=== PATIENT | male | born 1935 | race Caucasian/White ===

== ENCOUNTER 2018-01-03 08:45 | Inpatient (IN) ==
--- NOTE | 2018-01-02 22:41 | Discharge Summary ---
<Yvonne Eric E - Last Filed: 01/02/18 22:39> Date of Encounter: 01/02/18 - Discharge Diagnosis (1) Arthritis of left knee Priority: Primary Status: Chronic (2) Status post total left knee replacement Priority: Primary Status: Acute (3) Hypertension Priority: Secondary Status: Chronic Qualifiers: Hypertension type: unspecified Qualified Code(s): I10 - Essential (primary ) hypertension (4) Pacemaker Priority: Secondary Status: Chronic - Hospital Course Hospital course: Mr. Menjivar is a 82 year old male - Time Spent with Patient Total time spent providing and/or coordinating discharge services: - Discharge Medications Prescriptions: Aspirin Enteric Coated [Aspirin EC] 325 mg PO BID 10 Days #20 tablet. OxyCODONE Immed Rel [Roxicodone 5 MG] 5 mg PO Q6HR PRN 7 Days #28 tablet PRN Reason: Severe Pain Home Medications: Aspirin Enteric Coated [Aspirin EC] 325 mg PO BID 10 Days #20 tablet. [Rx] OxyCODONE Immed Rel [Roxicodone 5 MG] 5 mg PO Q6HR PRN 7 Days #28 tablet [Rx] Aspirin 162.5 mg PO DAILY 01/03/18 [History] Cyanocobalamin (Vitamin B-12) [Vitamin B-12] 1,000 mcg PO DAILY 01/03/18 [ History] Garlic 1,000 mg PO DAILY 01/03/18 [History] Glucosamine Sulfate Dipot Chlr [Glucosamine] 1,000 mg PO DAILY 01/03/18 [History ] Lisinopril [Zestril] 10 mg PO DAILY 01/03/18 [History] Magnesium 200 mg PO DAILY 01/03/18 [History] Multivitamin [One Daily Multivitamin] 1 tab PO DAILY 01/03/18 [History] Niacin 500 mg PO DAILY 01/03/18 [History] Silver-3/Dha/Epa/Fish Oil [Fish Oil 1,000 mg Softgel] 1 cap PO DAILY 01/03/18 [ History] Potassium 99 mg PO DAILY 01/03/18 [History] Saw [place] 500 mg PO DAILY 01/03/18 [History] Selenomethionine [Selenium] 200 mcg PO DAILY 01/03/18 [History] Ubidecarenone [Co Q-10] 10 mg PO DAILY 01/03/18 [History] Allergies/Adverse Reactions: 3 Allergy/AdvReac Type Severity Reaction Status Date / Time No Known Allergies Allergy Verified 01/03/18 09:57 Primary care physician: Kayleigh Duong - Discharge Instructions Follow Up With: Kayleigh Duong MD [Primary Care Provider] - <Justin Julien - Last Filed: 01/03/18 10:38> Orders not resulted at time of discharge: Pending orders 01/03/18 01:00 XR knee LT limited 1-2V [XR] Routine Hemoglobin and Hematocrit [HEME] Routine Date of Encounter: 01/03/18 - Discharge Diagnosis (1) Arthritis of left knee Priority: Primary Status: Chronic (2) Status post total left knee replacement Priority: Primary Status: Acute (3) Hypertension Priority: Secondary Status: Chronic Qualifiers: Hypertension type: unspecified Qualified Code(s): I10 - Essential (primary ) hypertension (4) Pacemaker Priority: Secondary Status: Chronic - Hospital Course Hospital course: Mr. Menjivar is a 82 year old male - Time Spent with Patient Total time spent providing and/or coordinating discharge services: Primary care physician: Kayleigh Duong
--- NOTE | 2018-01-03 08:52 | History & Physical Report ---
Date of Encounter: 01/03/18 Time of Encounter: 08:52 24 Hour HP Update - Instructions Instructions: If the History and Physical is less than 30 days old and was completed prior to A.M. admission and or procedure and has NOT been updated on calendar day of procedure please complete this update prior to performing procedure. - Update Patient reports changes in Medical Condition: No Changes in examination, assessment, or condition: No Changes in Medication: No Preop tests/diagnostics Reviewed: Yes Surgery Remains Indicated: Yes Consent for Planned Operative Procedure(s) Verified: Yes - Pre-Operative Checklist Preoperative Checklist Indicated: No Prophylactic Antibiotic Ordered: Yes Is VTE Prophylaxis Indicated?: Yes
[2018-01-03] MEDS ORDERED: Ringers Solution, Lactated 1,000 ML IVC SCH ×2 (09:15→13:58)
[2018-01-03] MEDS ORDERED: *HR* Midazolam HCl 2 MG/2 ML VIAL ONE (09:21)
[2018-01-03] MEDS ORDERED: *HR* FentaNYL (PF) 100 MCG/2 ML VIAL ONE (09:21)
[2018-01-03] MEDS ORDERED: *HR* Propofol 200 MG/20 ML VIAL IVP ONE ×2 (09:21→10:28)
[2018-01-03] MEDS ORDERED: Dexamethasone 4 MG/ML VIAL ONE (09:22)
[2018-01-03] MEDS ORDERED: Lidocaine -MPF 2% 2 ML VIAL ONE (09:22)
[2018-01-03] MEDS ORDERED: Ondansetron 4 MG/2 ML VIAL ONE (09:22)
[2018-01-03] MEDS ORDERED: Pregabalin 75 MG CAPSULE PO ONE (09:34)
[2018-01-03] MEDS ORDERED: Acetaminophen IV 1,000 MG/100 ML INFUS..BTL IVPB ONE (09:34)
[2018-01-03] MEDS ORDERED: Famotidine 20 MG/2 ML VIAL IVP ONE (09:34)
[2018-01-03] MEDS ORDERED: *HR* OxyCODONE Immed Rel 5 MG TABLET PO PRN ×2 (09:45→13:58)
[2018-01-03] MEDS ORDERED: *HR* FentaNYL (PF) 100 MCG/2 ML VIAL IVP PRN (09:45)
[2018-01-03] MEDS ORDERED: *HR* Promethazine 25 MG/ML VIAL IVP PRN (09:45)
--- NOTE | 2018-01-03 10:08 | Anesthesia Evaluation PreOp ---
Date of Encounter: 01/03/18 Time of Encounter: 10:00 - Past History Planned Operation: Left TKA Cardiac History: HTN, Hyperlipidemia, Arrhythmia, Pacemaker/ICD Pulmonary History: Denies Any Significant HX SAP TECHNICAL ARCHITECT History: Denies Any Significant HX Other Medical History: Denies Any Significant HX Anesthesia History: No Prior Anesthetic Complications Alcohol Use: occasionally Drug use: none Medications and Allergies Aspirin Enteric Coated [Aspirin EC] 325 mg PO BID 10 Days #20 tablet. [Rx] OxyCODONE Immed Rel [Roxicodone 5 MG] 5 mg PO Q6HR PRN 7 Days #28 tablet [Rx] Aspirin 162.5 mg PO DAILY 01/03/18 [History] Cyanocobalamin (Vitamin B-12) [Vitamin B-12] 1,000 mcg PO DAILY 01/03/18 [ History] Garlic 1,000 mg PO DAILY 01/03/18 [History] Glucosamine Sulfate Dipot Chlr [Glucosamine] 1,000 mg PO DAILY 01/03/18 [History ] Lisinopril [Zestril] 10 mg PO DAILY 01/03/18 [History] Magnesium 200 mg PO DAILY 01/03/18 [History] Multivitamin [One Daily Multivitamin] 1 tab PO DAILY 01/03/18 [History] Niacin 500 mg PO DAILY 01/03/18 [History] [place]-3/Dha/Epa/Fish Oil [Fish Oil 1,000 mg Softgel] 1 cap PO DAILY 01/03/18 [ History] Potassium 99 mg PO DAILY 01/03/18 [History] Saw [place] 500 mg PO DAILY 01/03/18 [History] Selenomethionine [Selenium] 200 mcg PO DAILY 01/03/18 [History] Ubidecarenone [Co Q-10] 10 mg PO DAILY 01/03/18 [History] 3 Allergy/AdvReac Type Severity Reaction Status Date / Time No Known Allergies Allergy Verified 01/03/18 09:57 - Meds/Allergy Pre-op Review Medications Reviewed: Yes Allergies Reviewed: Yes Beta Blockers on Current Med List: No Anesthesia Results - Labs Laboratory Tests 12/22/17 12/22/17 12/22/17 10:00 10:00 10:00 Hgb 14.7 Hct 40.7 Plt Count 255 PT 11.4 INR 1.1 APTT 29.7 Sodium 139 Potassium 4.3 BUN 9 Creatinine 1.16 - Imaging EKG: report reviewed (Pacemaker) Anesthesia Exam O2 Sat Height 1.78 m Height 1.78 m Height 1.78 m Weight 92.079 kg Weight 92.079 kg Weight 92.079 kg O2 Sat by Pulse Oximetry 96 Vital Signs Temp Pulse Resp BP Pulse Ox 98.3 F 60 18 150/73 96 01/03/18 09:11 01/03/18 09:11 01/03/18 09:11 01/03/18 09:11 01/03/18 09:11 Height: 5'10 Weight: 203 lbs NPO (# of Hours): MN Pain Scale: 0 - HEENT Pupil (Motor): Pupils equal, EOMI Mallampati: II Denture Type: Upper: Complete Oral Opening: Greater than 3 - SAP TECHNICAL ARCHITECT LOC: Oriented SAP TECHNICAL ARCHITECT Motor: Normal RUE, Normal LUE, Normal RLE, Normal LLE, Normal Face SAP TECHNICAL ARCHITECT Sensory: Normal: RUE, LUE, RLE, LLE, Face - Cardiac Rhythm: Regular Murmur: None JVD: No Carotid Bruit: No - Pulmonary Breath Sounds: bilateral Clear Respiratory Effort: Symmetrical Anesthesia Assess/Plan ASA Score: 3 ( Arrhythmia HTN Pacemaker) Modified Ty Scale for Level of Consciousness: Cooperative, oriented, and tranquil Anesthetic Plan: Regional, MAC Monitoring Plan: Standard Monitors Recovery Plan: PACU (Discussed SAB, Adductor Canal Block, possible GA, agrees to proceed)
[2018-01-03] MEDS ORDERED: Tetracaine/PF 20 MG/2 ML AMPUL ONE (10:10)
[2018-01-03] MEDS ORDERED: Morphine Sulfate/PF 5mg/10mL Vial ONE (10:10)
[2018-01-03] MEDS ORDERED: ROPIVACAINE HCL/PF 0.5% 30 ML VIAL ONE (10:10)
[2018-01-03] MEDS ORDERED: Ethanol\\Acetic Acid\\Na Ace\\Ben 1,000 ML IRRIG.SOLN IR ONE (10:30)
--- NOTE | 2018-01-03 10:38 | Anesthesia Procedures ---
Date of Encounter: 01/03/18 Time of Encounter: 10:42 Procedures: Anesthesia - Epidural/Spinal Patient ID/Chart reviewed: Yes Patient examined: Yes Supplemental Oxygen: None/Room Air Site Prep: Aseptic Technique, Sterile prep and drape, Povidone-Iodine 1% Patient position: upright Local Anesthetic: Lidocaine 1% Amount of Local Anesthetic used: 3 Spinal Needle Gauge: 25 Spinal Dose: 2.5cc 0.5 bupivicaine with 0.25mg duramorph Vitals + FHT's: see nursing note Vital Signs/O2 Sat, Most Current Temp Pulse Resp BP Pulse Ox 98.3 F 60 12 129/79 98 01/03/18 09:11 01/03/18 10:35 01/03/18 10:35 01/03/18 10:35 01/03/18 10:35 - Nerve Block Procedure Date: 01/03/18 Time: 10:39 Surgical Procedure: total knee Checklist: Correct Patient Identifier, Correct procedure, History checked Correct side: Left Blood Thinner: No Monitor Applied: EKG, BP, Pulse Oximetry Supplemental Oxygen via Nasal Cannula (L/min): 2 Indication: Post Op Analgesia Pre-op Neuro Deficits: No Block Type: Other (adductor canal) Catheter placed: No Sterile Technique: Yes Ultrasound used: Yes Anatomy identified: Yes Visual spread of Local: Yes Blood on Needle Aspiration: No Smooth Injection of Local: Yes Pain with Injection of Local: No Prep: Chlorhexadine Needle: 21 x 100 mm Stimuplex Local: Tetracaine (20 mg), Ropivacaine (30cc 0.5%) Volume (cc): 30cc Number of Attempts: 1 Complications: None/effective block Vitals: Vital Signs/O2 Sat, Most Current Temp Pulse Resp BP Pulse Ox 98.3 F 60 14 136/72 99 01/03/18 09:11 01/03/18 10:40 01/03/18 10:40 01/03/18 10:40 01/03/18 10:40
--- NOTE | 2018-01-03 10:41 | Anesthesia Procedures ---
Date of Encounter: 01/03/18 Time of Encounter: 10:05 Procedures: Anesthesia - Epidural/Spinal Patient ID/Chart reviewed: Yes Patient examined: Yes Supplemental Oxygen: Nasal Cannula (2) Sedation: Versed (mg): 1 Site Prep: Aseptic Technique Patient position: upright Local Anesthetic: Lidocaine 1% Amount of Local Anesthetic used: 2 Interspace Used: L4-L5 Blood: No CSF: Yes Spinal Needle Gauge: 25 Spinal Dose: 10 mg isobaric marcaine, duramorph 250 microgram Vitals + FHT's: Vital Signs/O2 Sat/Glucose, Most Current Temp Pulse Resp BP Pulse Ox 01/03/18 10:40 60 14 136/72 99 01/03/18 10:35 60 12 129/79 98 01/03/18 10:30 60 13 132/86 98 01/03/18 10:25 60 12 142/81 99 01/03/18 10:20 60 14 151/83 98 01/03/18 10:12 60 16 145/85 98 01/03/18 09:11 98.3 F 60 18 150/73 96
--- NOTE | 2018-01-03 11:39 | Orthopedic Operative Note ---
Date of procedure: 01/03/18 Pre-op diagnosis: Left knee arthritis Post-op diagnosis: same Procedure: Procedure: Left robotic-assisted Total knee replacement Estimated blood loss: 200 cc Hardware: Metal and polyethylene replacement. [place] Femur: 6 Tibia: 7 TS insert: 9 Patella: 39 Exam Under anesthesia: 4 degrees flexion contracture, 2 degree valgus as calculated by the robot full flexion and no instability Procedural Notes: Grade 4 arthritic changes all 3 compartments. Operative procedure: The patient was brought to the operating room and placed on the operating room table. After general anesthesia was administered the operative knee was examined. Findings were noted in the exam under anesthesia. The operative extremity was prepped and draped in sterile surgical fashion. The patient received IV antibiotics prior to skin incision. A standard midline incision was made centered over the patella. The incision was made through the skin and subcutaneous tissue. A medial parapatellar tendon approach was performed. Care was taken to preserve tissue along the medial aspect of the patella. And to protect the patella tendon. The deep MCL was released off the medial tibia. The infra patella fat pad was excised. The patella was everted and cut was made at the level of the insertion of the quadriceps and patella tendon. The patella was sized to 39 the guide was seated and the lug holes are drilled. Knee was brought into flexion. Patient noted to have Steinmann pins were placed in the tibia and the femur for the tibial and femoral arrays respectively. Checkpoints were also placed in the tibia and the femur for calculation purposes. The knee including the femur and the tibial registered. Osteophytes, ACL and PCL were excised at this point. Extension and flexion were assessed with a valgus stress components were adjusted on the computer to balance the knee. Femoral cuts were made first with robotic assistance, these included the anterior cut posterior cuts chamfer cuts. Tibial cut was then performed with robotic assistance as well. Bone fragments were removed, as well as the medial and lateral meniscus. The size 6 femoral guide was seated box cut was made lug holes are drilled. The size 7 tibial tray was seated and prepared with the fin cutter. Trial reduction with the 9 TS Shanda revealed extension of 0 degree and 1 degree varus full flexion. No varus valgus instability. Trial reduction revealed excellent patella tracking. All trial components were removed all bony surfaces were irrigated. The Tibia was seated followed by the femur, The Shanda size 9 was seated and secured patella. Patient had similar findings for motion and stability. The knee was closed by the PA. The knee was then irrigated out with 2 L of pulse irrigation. The extensor mechanism was closed with #2 FiberWire suture and #2 PDS suture. The subcutaneous tissue was then irrigated and closed deep with #1 PDS suture superficially with 0 PDS suture and skin was closed with zip tie The patient was then placed in a sterile dressing and a postoperative brace extubated and transferred to recovery room in stable condition. Anesthesia: spinal Surgeon: Justin Julien Was there an surveyor's assistant present: No Estimated blood loss (cc): 200 Condition: stable Disposition: PACU
--- NOTE | 2018-01-03 12:48 | Anesthesia Evaluation Post Op ---
Date of Encounter: 01/03/18 Time of Encounter: 12:47 - Vital Signs Vital Signs: Vital Signs/O2 Sat/Glucose, Most Recent Temp Pulse Resp BP Pulse Ox 99.3 F 60 16 126/76 95 01/03/18 12:11 01/03/18 12:31 01/03/18 12:31 01/03/18 12:31 01/03/18 12:31 - Lungs Lungs: Clear Ascult./Percussion - Airway Airway: Non-obstructed - Cardiovascular Regular Rate - Mental Status Mental Status: Alert & Oriented, Answers Appropriately - Pain Pain Scale: 0 Pain Scale used: Numeric (1 - 10) - Nausea Vomiting Nausea Vomiting: Not Present - Hydration Hydration: Tolerates oral liquids - Discharge PostOp Status: Transfer Patient to floor
[2018-01-03 12:59] LABS: Hematocrit 34.5 % (37.5-50.1); Hemoglobin 12.2 g/dL (12.9-16.9)
[2018-01-03] MEDS ORDERED: Temazepam 15 MG CAPSULE PO PRN (13:58)
[2018-01-03] MEDS ORDERED: *HR* OxyCODONE/APAP 5/325 TABLET PO PRN (13:58)
[2018-01-03] MEDS ORDERED: Naloxone 0.4 MG/ML INJ IVP PRN (13:58)
[2018-01-03] MEDS ORDERED: Ondansetron 4 MG/2 ML VIAL IVP PRN (13:58)
[2018-01-03] MEDS ORDERED: MOM Conc 10 ML UD.LIQ PO PRN (13:58)
[2018-01-03] MEDS ORDERED: Sennosides 8.6 MG TABLET PO PRN (13:58)
--- NOTE | 2018-01-03 16:21 | Physician Discharge Referral ---
ExtendedCare Referral Info Transfer To: [facility] Provider in Charge: Dr. Justin Julien - Diagnosis (1) Arthritis of left knee Priority: Primary Status: Chronic (2) Status post total left knee replacement Priority: Primary Status: Acute (3) Hypertension Priority: Secondary Status: Chronic (4) Pacemaker Priority: Secondary Status: Chronic Expected Duration of Placement: Less than 30 days Prognosis: Good Aware of Diagnosis: Patient Aware of Prognosis: Patient - Transfer Medications Prescriptions: OxyCODONE Immed Rel [Roxicodone 5 MG] 5 mg PO Q6HR PRN 7 Days #28 tablet PRN Reason: Severe Pain Aspirin Enteric Coated [Aspirin EC] 325 mg PO BID 10 Days #20 tablet. Home Medications: Aspirin Enteric Coated [Aspirin EC] 325 mg PO BID 10 Days #20 tablet. [Rx] OxyCODONE Immed Rel [Roxicodone 5 MG] 5 mg PO Q6HR PRN 7 Days #28 tablet [Rx] Aspirin 162.5 mg PO DAILY 01/03/18 [History] Cyanocobalamin (Vitamin B-12) [Vitamin B-12] 1,000 mcg PO DAILY 01/03/18 [ History] Garlic 1,000 mg PO DAILY 01/03/18 [History] Glucosamine Sulfate Dipot Chlr [Glucosamine] 1,000 mg PO DAILY 01/03/18 [History ] Lisinopril [Zestril] 10 mg PO DAILY 01/03/18 [History] Magnesium 200 mg PO DAILY 01/03/18 [History] Multivitamin [One Daily Multivitamin] 1 tab PO DAILY 01/03/18 [History] Niacin 500 mg PO DAILY 01/03/18 [History] [place]-3/Dha/Epa/Fish Oil [Fish Oil 1,000 mg Softgel] 1 cap PO DAILY 01/03/18 [ History] Potassium 99 mg PO DAILY 01/03/18 [History] Saw [place] 500 mg PO DAILY 01/03/18 [History] Selenomethionine [Selenium] 200 mcg PO DAILY 01/03/18 [History] Ubidecarenone [Co Q-10] 10 mg PO DAILY 01/03/18 [History] Allergies/Adverse Reactions: 3 Allergy/AdvReac Type Severity Reaction Status Date / Time No Known Allergies Allergy Verified 01/03/18 09:57 - Respiratory Orders Smoking Cessation: Smoking cessation has been advised. For more information, call the [place] Tobacco Quit Line at 6-142-SXKD-NOW. - Ancillary Orders May use pressure relief devices daily prn, May go on NANCY w/family/respon alliance party w /meds at nurse discretion PRN, May consult with Dentist, Web Systems Developer, Network Coordinator PRN - Mobility Orders Chair, Ambulate - Rehabiliation Orders Rehab Potential: Good Rehab Orders: Evaluation for Physical Therapy, Evaluation for Occupational Therapy Other: Total Knee replacement Precautions x 6 weeks Apply cold therapy wrap 3-6x/day for 20 minutes at a time. Encourage ambulation throughout the day and incentive spirometer 10x/hour. Elevate affected extremity above heart as tolerated. Brace: Wear knee immobilizer at night x 2 weeks. - Treatments Skin tear care topically daily PRN per policy - Diet Orders Regular CERTIFICATION: I certify that the transfer of the above named patient to an Extended Care Facility is necessary for the continuing treatment of the diagnosis listed. The above information is true and accurate reflection of patient's current condition. Confidential - Redisclosure prohibited without a patient's written consent.
--- NOTE | 2018-01-03 17:38 | Orthopedics Progress Note ---
Date of Encounter: 01/03/18 Time of Encounter: 17:37 - Assessment and Plan (1) Arthritis of left knee Current Visit: No Status: Chronic (2) Status post total left knee replacement Current Visit: No Status: Acute (3) Hypertension Current Visit: No Status: Chronic Qualifiers: Hypertension type: unspecified Qualified Code(s): I10 - Essential (primary ) hypertension (4) Pacemaker Current Visit: No Status: Chronic Subjective Interval history: Patient seen by physical therapy postop patient with a pacemaker high-risk individual patient evaluated by physical therapy and felt to be unsafe to go home patient will require transferred to the extended care facility patient will be converted to an inpatient status Objective Vital signs: Vital Signs Temp Pulse Resp BP Pulse Ox 01/03/18 15:57 97.6 F 60 16 146/84 95 01/03/18 14:45 61 16 139/85 96 01/03/18 14:21 97 01/03/18 14:17 61 148/86 96 01/03/18 13:41 97.5 F L 60 155/84 97 01/03/18 13:20 59 16 134/76 94 01/03/18 13:04 96.8 F L 60 124/73 93 01/03/18 12:52 60 16 111/82 97 01/03/18 12:41 97.7 F 60 16 119/85 97 01/03/18 12:31 60 16 126/76 95 01/03/18 12:21 60 16 119/69 96 01/03/18 12:11 99.3 F 62 16 106/67 95 01/03/18 10:40 60 14 136/72 99 01/03/18 10:35 60 12 129/79 98 01/03/18 10:30 60 13 132/86 98 01/03/18 10:25 60 12 142/81 99 01/03/18 10:20 60 14 151/83 98 01/03/18 10:12 60 16 145/85 98 01/03/18 09:11 98.3 F 60 18 150/73 96 Intake and Output 01/03/18 01/03/18 01/03/18 07:59 15:59 23:59 Intake Total 250 / 250 Output Total 200 / 200 Balance 50 / 50 Intake: IV Fluids 250 / 250 Vancocin 1,250 MG In 0.9 % 250 / 250 Sodium Chloride 250 ML @ 167 mls/hr IVPB ONCE ONE Rx#: [id number] Output: Estimated Blood Loss 200 / 200 Other: Weight 92.079 kg Patient Weight 01/03/18 23:59 Weight 92.079 kg - Labs CBC & BMP: 01/03/18 12:24 Labs: Abnormal lab results Hgb 12.2 g/dL (12.9-16.9) L 01/03/18 12:24 Hct 34.5 % (37.5-50.1) L 01/03/18 12:24 - VTE Documentation of Mechanical Device: Venous foot pump, device Consult Discharge Plan - Plan Referrals: Kayleigh Duong MD [Primary Care Provider] - Prescriptions: Aspirin Enteric Coated [Aspirin EC] 325 mg PO BID 10 Days #20 tablet. OxyCODONE Immed Rel [Roxicodone 5 MG] 5 mg PO Q6HR PRN 7 Days #28 tablet PRN Reason: Severe Pain
[2018-01-04 01:26] LABS: Hematocrit 34.1 % (37.5-50.1)
[2018-01-04 01:44] LABS: BUN/Creatinine Ratio 13 (6-26); Blood Urea Nitrogen 15 mg/dL (8-23); Calcium 8.6 mg/dL (8.6-10.3); Carbon Dioxide 18 mEq/L (23-29); Chloride 108 mEq/L (98-107); Glucose 262 mg/dL (70-105); Osmolality,Calculated 292 (280-300); Potassium 4.6 mEq/L (3.5-5.1); Sodium 136 mEq/L (136-145); eGFR For African Americans > 60 (> 60); eGFR For Non-African Americans 58 (> 60)
--- NOTE | 2018-01-04 06:51 | Orthopedics Progress Note ---
Date of Encounter: 01/04/18 Time of Encounter: 06:51 - Assessment and Plan (1) Arthritis of left knee Current Visit: No Status: Chronic (2) Status post total left knee replacement Current Visit: No Status: Acute (3) Hypertension Current Visit: No Status: Chronic Qualifiers: Hypertension type: unspecified Qualified Code(s): I10 - Essential (primary ) hypertension (4) Pacemaker Current Visit: No Status: Chronic Subjective Interval history: Patient was seen this morning doing well without complaints. Afebrile vital signs stable. Operative extremity: Neurovascularly intact Dressing clean dry and intact Calves nontender Assessment and plan: Continue with postoperative care Hematocrit 34 Objective Vital signs: Vital Signs Temp Pulse Resp BP Pulse Ox 01/04/18 06:39 98.9 F 60 16 112/65 94 01/04/18 03:38 98.4 F 62 14 102/63 92 01/03/18 23:49 97.9 F 60 14 110/65 93 01/03/18 19:45 97.6 F 61 14 137/76 93 01/03/18 16:59 97.6 F 68 16 166/95 95 01/03/18 15:57 97.6 F 60 16 146/84 95 01/03/18 14:45 61 16 139/85 96 01/03/18 14:21 97 01/03/18 14:17 61 148/86 96 01/03/18 13:41 97.5 F L 60 155/84 97 01/03/18 13:20 59 16 134/76 94 01/03/18 13:04 96.8 F L 60 124/73 93 01/03/18 12:52 60 16 111/82 97 01/03/18 12:41 97.7 F 60 16 119/85 97 01/03/18 12:31 60 16 126/76 95 01/03/18 12:21 60 16 119/69 96 01/03/18 12:11 99.3 F 62 16 106/67 95 01/03/18 10:40 60 14 136/72 99 01/03/18 10:35 60 12 129/79 98 01/03/18 10:30 60 13 132/86 98 01/03/18 10:25 60 12 142/81 99 01/03/18 10:20 60 14 151/83 98 01/03/18 10:12 60 16 145/85 98 07/02/18 09:11 98.3 F 60 18 150/73 96 Intake and Output 01/03/18 01/03/18 01/04/18 15:59 23:59 07:59 Intake Total 250 / 250 825 / 825 100 / 100 Output Total 200 / 200 25 / 25 Balance 50 / 50 815 / 815 75 / 75 Intake: IV Fluids 250 / 250 100 / 100 100 / 100 Vancocin 1,250 MG In 0.9 % 250 / 250 Sodium Chloride 250 ML @ 167 mls/hr IVPB ONCE ONE Rx#: [id number] Ancef 2,000 MG In 0.9 % Sodium 100 / 100 100 / 100 Chloride 100 ML @ 200 mls/hr IVPB Q8HR FÁTIMA Rx#:[id number] Oral 725 / 725 Output: Urine 25 / 25 Estimated Blood Loss 200 / 200 Other: Weight 92.079 kg - Labs CBC & BMP: 01/04/18 01:07 01/04/18 01:07 Labs: Abnormal lab results Hgb 12.0 g/dL (12.9-16.9) L 01/04/18 01:07 Hct 34.1 % (37.5-50.1) L 01/04/18 01:07 Chloride 108 mEq/L (98-107) H 01/04/18 01:07 Carbon Dioxide 18 mEq/L (23-29) L 01/04/18 01:07 Est GFR (Non-Af Amer) 58 (> 60) L 01/04/18 01:07 Glucose 262 mg/dL (70-105) H 01/04/18 01:07 - VTE Documentation of Mechanical Device: Venous foot pump, device Consult Discharge Plan - Plan Referrals: Kayleigh Duong MD [Primary Care Provider] -
[2018-01-04] MEDS: Aspirin 325 MG TABLET PO SCH (09:36)
[2018-01-04] MEDS: Multivit/Ca/Min/Fe/FA 1 TAB TABLET PO SCH (09:37)
[2018-01-04] MEDS: Cyanocobalamin (B-12) 1,000 MCG TABLET PO SCH (09:38)
[2018-01-04] MEDS: Magnesium Oxide 400 MG TABLET PO SCH (09:39)
[2018-01-04] MEDS: Niacin (24 HR) 500 MG TAB.ER.24H PO SCH (09:39)
[2018-01-04] MEDS: (Garlic [Garlic] 1,000 MG) PO SCH (09:40)
[2018-01-04] MEDS: SELENOMETHIONINE 200 MCG PO SCH (09:40)
[2018-01-04] MEDS: (Potassium [Potassium] 99 MG) PO SCH (09:40)
[2018-01-04] MEDS: *HR* Enoxaparin 30 MG/0.3 ML SYRINGE SQ SCH ×2 (09:40→17:40)
[2018-01-04] MEDS: (Ubidecarenone [Co Q-10] 10 MG) PO SCH (09:41)
[2018-01-04] MEDS: traMADol 50 MG TABLET PO PRN (21:31)
[2018-01-05 01:15] LABS: Hemoglobin 10.9 g/dL (12.9-16.9)
[2018-01-05 01:29] LABS: BUN/Creatinine Ratio 17 (6-26); Blood Urea Nitrogen 21 mg/dL (8-23); Calcium 8.9 mg/dL (8.6-10.3); Carbon Dioxide 25 mEq/L (23-29); Chloride 105 mEq/L (98-107); Glucose 219 mg/dL (70-105); Osmolality,Calculated 294 (280-300); Potassium 4.2 mEq/L (3.5-5.1); Sodium 137 mEq/L (136-145); eGFR For African Americans > 60 (> 60); eGFR For Non-African Americans 55 (> 60)
[2018-01-05] MEDS: *HR* Enoxaparin 30 MG/0.3 ML SYRINGE SQ SCH ×2 (05:32→18:07)
[2018-01-05] MEDS: SELENOMETHIONINE 200 MCG PO SCH (09:30)
[2018-01-05] MEDS: (Potassium [Potassium] 99 MG) PO SCH (09:30)
[2018-01-05] MEDS: (Garlic [Garlic] 1,000 MG) PO SCH (09:30)
[2018-01-05] MEDS: (Ubidecarenone [Co Q-10] 10 MG) PO SCH (09:30)
[2018-01-05] MEDS: Cyanocobalamin (B-12) 1,000 MCG TABLET PO SCH (09:33)
[2018-01-05] MEDS: Magnesium Oxide 400 MG TABLET PO SCH (09:33)
[2018-01-05] MEDS: Niacin (24 HR) 500 MG TAB.ER.24H PO SCH (09:33)
[2018-01-05] MEDS: Multivit/Ca/Min/Fe/FA 1 TAB TABLET PO SCH (09:33)
[2018-01-05] MEDS: Aspirin 325 MG TABLET PO SCH (09:33)
--- NOTE | 2018-01-05 09:39 | Event Note ---
Date of Encounter: 01/04/18 Time of Encounter: 17:25 PCR- POD#1 status post left total knee robotic 01/03 Dr. Julien PCR - Patient seen at bedside. Alert and oriented x 3 Labwork and medications reviewed. 01/04: H/H 12.0/34.1 Vital signs reviewed. Pain control: Adequate Participating in PT. All questions and concerns addressed. Educated on use of incentive spirometer, ambulation, and hydration. Patient educated on post-operative restrictions and care. Addressed: see above. D/C plan: In rehab - [place] - awaiting auth
[2018-01-05 15:41] VITALS: BP 137/67
--- NOTE | 2018-01-05 17:13 | Orthopedics Progress Note ---
Date of Encounter: 01/05/18 Time of Encounter: 17:12 Subjective Principal diagnosis: Status post left total knee arthroplasty Interval history: The patient is without complaints. Afebrile vital signs are stable. Incision is clean dry and intact. Neurovascularly intact with regard to bilateral lower extremities. Fires all upper and lower extremity motor groups. Assessment : stable. Plan mobilize ,continue analgesics, discharge planning. Objective Vital signs: Vital Signs Temp Pulse Resp BP Pulse Ox 01/05/18 15:38 98.5 F 63 15 137/67 94 01/05/18 11:56 99.0 F 60 17 138/66 93 01/05/18 06:39 99.0 F 60 17 149/71 95 01/05/18 00:22 99.4 F 66 14 144/64 94 01/04/18 20:54 99.1 F 60 14 126/65 93 Intake and Output 01/05/18 01/05/18 01/05/18 07:59 15:59 23:59 Intake Total 400 / 400 240 / 240 Output Total 275 / 275 Balance 400 / 400 -35 / -35 Intake: Oral 400 / 400 240 / 240 Output: Urine 275 / 275 Other: Meal Lunch Percent of Meal Consumed 100% Stool Size Small Stool Consistency formed Stool Color Brown - Labs CBC & BMP: 01/05/18 00:44 01/05/18 00:44 Labs: Abnormal lab results Hgb 10.9 g/dL (12.9-16.9) L 01/05/18 00:44 Hct 31.0 % (37.5-50.1) L 01/05/18 00:44 Est GFR (Non-Af Amer) 55 (> 60) L 01/05/18 00:44 Glucose 219 mg/dL (70-105) H 01/05/18 00:44 - VTE Documentation of Mechanical Device: Venous foot pump, device Consult Discharge Plan - Plan Referrals: Kayleigh Duong MD [Primary Care Provider] -
[2018-01-05] MEDS: traMADol 50 MG TABLET PO PRN (18:13)
== END 2018-01-05 18:30 | disposition other institution (70) | DRG 470 ==
LOC: SAMDAY 08:45 → 3NENU 12:56
PROVIDERS: ADMIT Orthopaedic Surgery; ATTEND Orthopaedic Surgery